=== PATIENT | female | born 1975 | race Two or more races ===

== ENCOUNTER 2017-03-24 11:48 | Emergency (ER) | payer OTHER, SELFPAY ==
[~2017-03-24] VITALS: Ht 162.6 cm; Wt 92.0 kg
[2017-03-24] MEDS ORDERED: KETOROLAC 30 MG/1 ML IM ONE (12:30)
[2017-03-24] MEDS ORDERED: KETOROLAC 30 MG/1 ML ONE (12:31)
[2017-03-24 12:38] LABS: HEMATOCRIT 40.2 % (34.6-47.8); HEMOGLOBIN 13.5 g/dL (11.7-16.4); WHITE BLOOD COUNT 8.3 x10^3/uL (3.4-10)
[2017-03-24 12:51] LABS: BLOOD UREA NITROGEN 15 mg/dL (7-18)
[2017-03-24 12:56] LABS: ASPARTATE AMINO TRANSFERASE 10 U/L (15-37)
[2017-03-24 13:01] LABS: PATH.CAST-FLAG NOT PRESENT; SPERM-FLAG NOT PRESENT; SRC-FLAG NOT PRESENT; XTAL-FLAG NOT PRESENT; YLC-FLAG NOT PRESENT
[2017-03-24 13:44] VITALS: BP 112/69
== END 2017-03-24 13:45 | disposition home or self-care (01) ==
LOC: ED 13:43
DX: S39.012A Strain of muscle, fascia and tendon of lower back, initial encounter (principal); X58.XXXA Exposure to other specified factors, initial encounter; Y93.89 Activity, other specified; Y99.8 Other external cause status; Y92.89 Other specified places as the place of occurrence of the external cause
CPT/HCPCS: 36415; 80053; 81001; 84703; 85025; 96372; 99284; J1885

== ENCOUNTER 2019-06-17 12:55 | Emergency (ER) | payer OTHER ==
[~2019-06-17] VITALS: Ht 160 cm; Wt 105.0 kg
[2019-06-17] MEDS ORDERED: ACETAMINOPHEN 500 MG TABLET PO ONE ×2 (13:30→14:00)
[2019-06-17] MEDS ORDERED: ACETAMINOPHEN 500 MG TABLET ONE (13:32)
--- NOTE | 2019-06-17 13:37 | NUR ---
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
--- NOTE | 2019-06-17 13:37 | NUR ---
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 UA CUP GIVEN
[2019-06-17 13:57] LABS: BASOPHILS # (AUTO) 0.04 x10^3/uL (0-0.1); BASOPHILS % (AUTO) 0 % (0-1); EOSINOPHILS % (AUTO) 0 % (1-7); LYMPHOCYTES # (AUTO) 1.01 x10^3/uL (1-3.4); LYMPHOCYTES % (AUTO) 6 % (22-44); MD NO; MEAN CORPUSCULAR HEMOGLOBIN 29.6 pg (27.0-34.8); MEAN CORPUSCULAR HGB CONC 32.9 g/dL (32.4-35.8); MEAN CORPUSCULAR VOLUME 89.9 fL (80-100); MEAN PLATELET VOLUME 9.3 fL (7.4-10.4); MONOCYTES # (AUTO) 0.21 x10^3/uL (0.2-0.8); MONOCYTES % (AUTO) 1 % (2-9); NEUTROPHILS # (AUTO) 16.54 x10^3/uL (1.8-6.8); NEUTROPHILS % (AUTO) 93 % (42-75); PLATELET COUNT 236 x10^3/uL (130-400); RED BLOOD COUNT 5.18 x10^6/uL (3.82-5.3); RED CELL DISTRIBUTION WIDTH 14.8 % (9.6-15.2)
[2019-06-17 14:05] LABS: RAPID INFLUENZA A Negative (Negative); RAPID INFLUENZA B Negative (Negative)
--- NOTE | 2019-06-17 14:07 | NUR ---
PT IN BED, GOWN ON, MONITORS ATTACHED. C/O HEADACHE 10/10 WITH TUNNEL VISION AND DIZZINESS SINCE LAST NIGHT, THROAT PAIN 10/10, GENERALIZED BODY ACHES 10/10, AND FEVER. DENIES ANY MEDICAL HISTORY, OR SURGERIES. CALL LIGHT IN REACH. PT DENIES ANY FURTHER NEEDS OR CONCERNS.
[2019-06-17 14:09] LABS: ALANINE AMINOTRANSFERASE 23 U/L (12-78); ALBUMIN 3.5 g/dL (3.4-5.0); ANION GAP 8 mmol/L (5-15); CALCIUM 8.6 mg/dL (8.5-10.1); CHLORIDE 106 mmol/L (98-107)
[2019-06-17 14:12] LABS: ALKALINE PHOSPHATASE 88 U/L (45-117); BILIRUBIN,TOTAL 0.7 mg/dL (0.2-1.0); CREATININE 0.94 mg/dL (0.55-1.02)
[2019-06-17 14:26] LABS: MICROSCOPIC AUTO
[2019-06-17 14:29] LABS: CULTURE INDICATED? YES
[2019-06-17] MEDS ORDERED: CEFTRIAXONE PMX 1GM/50ML 50 ML ONE (14:58)
[2019-06-17] MEDS ORDERED: CEFTRIAXONE PMX 1GM/50ML 50 ML IVPB ONE (15:00)
[2019-06-17 15:10] VITALS: BP 122/70
--- NOTE | 2019-06-17 15:10 | NUR ---
RECEIVED REPORT FROM JANEL MIX. CHART UP FOR MD ALEXIS. PT AWARE.
== END 2019-06-17 15:28 | disposition home or self-care (01) ==
LOC: ED 15:22
DX: N30.00 Acute cystitis without hematuria (principal); D72.829 Elevated white blood cell count, unspecified
CPT/HCPCS: 36415; 71045; 80053; 81001; 83605; 85025; 87040; 87086; 87400; 96365; 99291; J0696